=== PATIENT | female | born 1980 | race Caucasian/White ===

== ENCOUNTER 2023-11-14 20:57 | Outpatient (CLI) | payer OTHER, SELFPAY | END 2023-11-14 20:58 | disposition home or self-care (01) | PROVIDERS: Visit Provider Nurse Practitioner | DX: G47.33 Obstructive sleep apnea (adult) (pediatric) (principal); R09.02 Hypoxemia; G47.31 Primary central sleep apnea | CPT/HCPCS: 95811 ==